=== PATIENT | male | born 1985 | race Two or more races ===

== ENCOUNTER 2025-08-02 09:01 | Inpatient (IN) | payer OTHER ==
[~2025-08-02] VITALS: Ht 172.7 cm; Wt 87.9 kg
--- NOTE | 2025-08-02 09:12 | ED.PDOC ---
SOB-HPI HPI Comments 39 year old male with PMHx DM insulin dependent, HTN, anemia, CKF presents to the ED via EMS with a chief complaint of shortness of breath onset last night. Per EMS, patient's O2 sat upon arrival was 49% RA, was placed on NRB improved to 79%, placed on c-pap, upon ED arrival O2 sat was 82% on 10 L cpap. Patient began experiencing shortness of breath last night, worsen this morning. Patient goes to dialysis Saturday, , Saturday, last dialysis was 2 days ago. No other symptoms or modifying factors present at this time. Time Seen by MD: 09:05 Reviewed notes: Medications, Allergies Information Source: Patient, Emergency Med Personnel Mode of Arrival: EMS Severity: Moderate Timing: Hours Duration: Since onset Context: At Rest PE Risk Factors: None History of: None Prehospital treatment: C-Pap Modifying Factors: Nothing Past Medical History PAST MEDICAL HISTORY: Anemia, CKF, DM, HTN Surgical History: Denies all surgeries Family History Family History: Reviewed,noncontributory to illness, No family hx of Cancer, No family hx of DM, No family hx of Heart colin, No family hx of HTN, No family hx ofKidney colin, No family hx of Liver colin, No family hx of Lung colin, No family hx of Stroke Social History Smoker: Non-Smoker Alcohol: Denies ETOH Use Drugs: Denies Drug Use Lives In: Home Constitutional: denies: chills, diaphoresis, fatigue, fever, malaise, sweats, weakness, others EENTM: denies: blurred vision, double vision, ear bleeding, ear discharge, ear drainage, ear pain, ear ringing, eye pain, eye redness, hearing loss, mouth pain, mouth swelling, nasal discharge, nose bleeding, nose congestion, nose pain, photophobia, tearing, throat pain, throat swelling, voice changes, others Respiratory: reports: shortness of breath; denies: cough, hemoptysis, orthopnea, SOB at rest, SOB with excertion, stridor, wheezing, others Cardiovascular: denies: chest pain, dizzy spells, diaphoresis, Dyspnea on exertion, edema, irregular heart beat, left arm pain, lightheadedness, palpitations, PND, syncope, others Gastrointestinal: denies: abdomen distended, abdominal pain, blood streaked bowels, constipated, diarrhea, dysphagia, difficulty swallowing, hematemesis, melena, nausea, poor appetite, poor fluid intake, rectal bleeding, rectal pain, vomiting, others Genitourinary: denies: burning, dysuria, flank pain, frequency, hematuria, incontinence, penile discharge, penile sore, pain, testicle pain, testicle swelling, urgency, others Neurological: denies: dizziness, fainting, headache, left sided numbness, left sided weakness, numbness, paresthesia, pre-existing deficit, right sided numbness, right sided weakness, seizure, speech problems, tingling, tremors, weakness, others Musculoskeletal: denies: back pain, gout, joint pain, joint swelling, muscle pain, muscle stiffness, neck pain, others Integumetry: denies: bruises, change in color, change in hair/nails, dryness, laceration, lesions, lumps, rash, wounds, others Allergic/Immunocompromised: denies: Difficulty Healing, Frequent Infections, Hives, Itching, others Hematologic/Lymphatic: denies: anemia, blood clots, easy bleeding, easy bruising, swollen glands, others Endocrine: denies: excessive hunger, excessive sweating, excessive thirst, excessive urination, flushing, intolerance to cold, intolerance to heat, unex plained weight gain, unexplained weight loss, others Psychiatric: denies: anxiety, bipolar disorder, depression, hopeless, panic disorder, schizophrenia, sleepless, suicidal, others All Other Systems: Reviewed and Negative Physical Exam General Appearance: Moderate Distress, Normal HEENT: Normal ENT Inspection, Pharynx Normal, TMs Normal Neck: Full Range of Motion, Non-Tender, Normal, Normal Inspection Respiratory: Other (Patient in respiratory distress without moving much air. Crackles bilaterally) Cardiovascular: No Edema, No JVD, No Murmur, No Gallop, Normal Peripheral Pulses, Regular Rate/Rhythm Breast Exam: Deferred Gastrointestinal: No Organomegaly, Non Tender, No Pulsatile Mass, Normal Bowel Sounds, Soft Genitalia: Deferred Pelvic: Deferred Rectal: Deferred Extremities: No calf tenderness, Normal capillary refill, Normal inspection, N ormal range of motion, Non-tender, No pedal edema Musculoskeletal : Apperance: Normal Neurologic: Alert, dual hose cementer II-XII nml as Tested, No Motor Deficits, Normal Affect, Normal Mood, No Sensory Deficits Cerebellar Function: Normal Reflexes: Normal Skin: Dry, Normal Color, Warm Lymphatic: No Adenopathy Was a procedure done? Was a procedure done?: No Differential Dx Differential Diagnosis: Pneumonia, Respiratory Distress, URI X-Ray, Labs, Meds, VS Vital Signs Date Time Temp Pulse Resp B/P (MAP) Pulse Ox O2 Delivery O2 Flow Rate FiO2 08/02/25 12:53 95 Nasal Cannula* 4 36 08/02/25 12:00 97 15 163/76 (105) 99 08/02/25 09:22 99.4 107 15 175/87 (116) 98 99.4 08/02/25 09:22 Bi-Pap+ 30 30 08/02/25 09:20 96 Bi-Pap+ 65 65 08/02/25 09:20 25 96 Bi-Pap+ 65 65 08/02/25 09:20 25 175/87 Facial BiPAP Mask 65 08/02/25 09:11 99.6 101 30 160/70 82 99.6 08/02/25 09:06 108 Lab Test 08/02/25 12:04 08/02/25 09:30 Range/Units Troponin I High Sensitivity 29 21 </=54 ng/L White Blood Count 11.4 H 4.4-10.8 10^3/uL Red Blood Count 2.58 L 4.5-5.90 10^6/uL Hemoglobin 7.1 L 13.5-17.5 g/dL Hematocrit 22.0 L 41.0-53.0 % Mean Corpuscular Volume 85.1 80.0-100.0 fL Mean Corpuscular Hemoglobin 27.4 L 28.0-32.0 pg Mean Corpuscular Hemoglobin Concent 32.2 32.0-36.0 g/dL Red Cell Distribution Width 13.6 11.8-14.3 % Platelet Count 314 140-450 10^3/uL Mean Platelet Volume 7.0 6.9-10.8 fL Neutrophils (%) (Auto) 85.8 H 37.0-80.0 % Lymphocytes (%) (Auto) 5.6 L 10.0-50.0 % Monocytes (%) (Auto) 8.2 0.0-12.0 % Eosinophils (%) (Auto) 0.1 0.0-7.0 % Basophils (%) (Auto) 0.3 0.0-2.0 % Neutrophils # (Auto) 9.7 H 1.6-8.6 10 ^3/uL Lymphocytes # (Auto) 0.6 0.4-5.4 10 ^3/uL Monocytes # (Auto) 0.9 0-1.3 10 ^3/uL Eosinophils # (Auto) 0 0-0.8 10 ^3/uL Basophils # (Auto) 0 0-0.2 10 ^3/uL Nucleated Red Blood Cells 0.0 % Sodium Level 138 136-145 mmol/L Potassium Level 4.9 3.5-5.1 mmol/L Chloride Level 94 L 98-107 mmol/L Carbon Dioxide Level 32 H 20-31 mmol/L Anion Gap 12 5-15 Blood Urea Nitrogen 40 H 9-23 mg/dL Creatinine 9.20 H 0.700-1.30 mg/dL Glomerular Filtration Rate Calc 7 >90 mL/min BUN/Creatinine Ratio 4.3 L 10.0-20.0 Serum Glucose 214 H 74-106 mg/dL Lactic Acid Level 1.8 0.4-2.0 mmol/L Calcium Level 9.1 8.7-10.4 mg/dL Total Bilirubin 0.4 0.2-1.0 mg/dL Aspartate Amino Transferase (AST) 22 13-40 U/L Alanine Aminotransferase (ALT) 31 7-40 U/L Alkaline Phosphatase 171 H 46-116 U/L B-Type Natriuretic Peptide 1275.86 0-100 pg/mL Total Protein 7.3 5.7-8.2 g/dL Albumin 3.9 3.2-4.8 g/dL Current Medications Medications (Trade) Dose Ordered Sig/Brunilda Route Start Time Stop Time Status Last Admin Albuterol (Ventolin Medneb) 5 mg ONCE ONCE NEB 08/02/25 09:15 08/02/25 09:16 DC 08/02/25 10:48 Ipratropium [place] (Atrovent Medneb) 0.5 mg ONCE ONCE NEB 08/02/25 09:15 08/02/25 09:16 DC 08/02/25 10:[address] [address] Ph: [phone] DIAGNOSTIC IMAGING Diagnostic Imaging Report : [id number] Signed PATIENT: NESSA MICHAELACCT: [id number] UNIT: [id number] : 1985 LOC: ER ROOM / BED: / AGE / SEX: 39 / M ADM STATUS: REG ER SERVICE [id number] ORDERING PHYSICIAN: RABIA RIVERA MD PROCEDURE(s): CXRP - CHEST PORTABLE REASON: sob ORDER NUMBER(s): [id number], ACCESSION NUMBER(s): [id number] CHEST RADIOGRAPH Indication: sob Technique: Single frontal view of the chest was obtained Comparison: None FINDINGS: Lines and Tubes: Right IJ double-lumen hemodialysis catheter. Lungs: Left mid lung opacity and to a lesser degree right mid lung opacities concerning for multifocal pneumonia versus pulmonary edema. Pleura: No effusion. No pneumothorax. Cardiomediastinal contours: Unremarkable Bones: No acute osseous abnormality. IMPRESSION: 1. Left mid lung opacity and to a lesser degree right mid lung opacities concerning for multifocal pneumonia versus pulmonary edema. ATED BY: ALFONSO GARNER MD DICTATED DATE/TIME: 08/02/25 1007 SIGNED BY: ALFONSO GARNER MD SIGNED DATE/TIME: 08/02/25 1007 CC: Time of 1ST Reevaluation: 09:35 Reevaluation 1ST: Unchanged Patient Education/Counseling: Diagnosis, Treatment, Prognosis Family Education/Counseling: No Family Present SEPSIS Sepsis Screen Physician Orders Urinalysis (08/02/25 09:08) Chest Portable (08/02/25 09:34) Electrocardigram (08/02/25 09:08) Blood Culture (08/02/25 09:08) Troponin-I Hs (08/02/25 12:08) Electrocardigram (08/02/25 10:08) Electrocardigram (08/02/25 12:08) BIPAP (08/02/25 09:00) Vital Signs Date Time Temp Pulse Resp B/P (MAP) Pulse Ox O2 Delivery O2 Flow Rate FiO2 08/02/25 12:53 95 Nasal Cannula* 4 36 08/02/25 12:00 97 15 163/76 (105) 99 08/02/25 09:22 99.4 107 15 175/87 (116) 98 99.4 08/02/25 09:22 Bi-Pap+ 30 30 08/02/25 09:20 96 Bi-Pap+ 65 65 08/02/25 09:20 25 96 Bi-Pap+ 65 65 08/02/25 09:20 25 175/87 Facial BiPAP Mask 65 08/02/25 09:11 99.6 101 30 160/70 82 99.6 08/02/25 09:06 108 Laboratory Tests Test 08/02/25 09:30 Lactic Acid Level 1.8 mmol/L (0.4-2.0) White Blood Count 11.4 10^3/uL (4.4-10.8) H Medications Medications Dose Ordered Sig/Brunilda Route Start Time Stop Time Status Last Admin Dose Admin Albuterol 5 mg ONCE ONCE NEB 08/02/25 09:15 08/02/25 09:16 DC 08/02/25 10:48 Ipratropium [place] 0.5 mg ONCE ONCE NEB 08/02/25 09:15 08/02/25 09:16 DC 08/02/25 10:48 Departure 1 Departure Time of Disposition: 13:15 (Patient with multifocal pneumonia. And acute respiratory failure. Patient is requiring BiPAP. We will empirically cover patient with antibiotics. We will not give patient fluids as patient is on dialysis and clinically appears volume overloaded.) Impression: Primary Impression: Acute respiratory failure Additional Impressions: Multifocal pneumonia ESRD (end stage renal disease) Disposition: ADMITTED INPATIENT Admit to: [facility] Condition: Guarded Critical Care Note Critical Care Time?: Yes Critical care comment: Acute respiratory failure and multifocal pneumonia Authorized and Performed by: Rabia Rivera MD Total critical care time: Approximately 48 minutes Due to a high probability of clinically significant, life threatening deterioration, the patient required my highest level of preparedness to intervene emergently and I personally spent this critical care time directly and personally managing the patient. This critical care time included obtaining a history; examining the patient; pulse oximetry; ordering and review of studies; arranging urgent treatment with development of a management plan; evaluation of patient's response to treatment; frequent reassessment; and, discussions with other providers. This critical care time was performed to assess and manage the high probability of imminent, life-threatening deterioration that could result in multi-organ failure. It was exclusive of separately billable procedures and treating other patients and teaching time. Please see my other sections and the rest of the note for further information on patient assessment and treatment. Stability Stability form required: No Heart Score Heart Score: Heart Score Response (Comments) Value History N/A 0 EKG N/A 0 Age N/A 0 Risk Factors N/A 0 Troponin N/A 0 Total 0 I personally scribed for RABIA RIVERA MD ([email or web address]) on 08/02/25 at 09:12. Electronically submitted by Debbie Huerta ([email or web address]). I personally scribed for RABIA RIVERA MD ([email or web address]) on 08/02/25 at 09:20. Electronically submitted by Debbie Huerta ([email or web address]). I personally scribed for RABIA RIVERA MD ([email or web address]) on 08/02/25 at 10:17. Electronically submitted by Debbie Huerta ([email or web address]). RABIA RIVERA MD Aug 02, 2025 09:12
[2025-08-02 09:59] LABS: Hemoglobin 7.1 g/dL (13.5-17.5); Mean Corpuscular Volume 85.1 fL (80.0-100.0); Nucleated Red Blood Cells % 0.0 %
[2025-08-02 10:03] LABS: Hematocrit 22.0 % (41.0-53.0); Mean Corpuscular Hemoglobin 27.4 pg (28.0-32.0)
--- NOTE | 2025-08-02 10:09 | DVH ---
CHEST RADIOGRAPH Indication: sob Technique: Single frontal view of the chest was obtained Comparison: None FINDINGS: Lines and Tubes: Right IJ double-lumen hemodialysis catheter. Lungs: Left mid lung opacity and to a lesser degree right mid lung opacities concerning for multifocal pneumonia versus pulmonary edema. Pleura: No effusion. No pneumothorax. Cardiomediastinal contours: Unremarkable Bones: No acute osseous abnormality. IMPRESSION: 1. Left mid lung opacity and to a lesser degree right mid lung opacities concerning for multifocal pneumonia versus pulmonary edema.
[2025-08-02 10:13] LABS: Alanine Aminotransferase 31 U/L (7-40); Albumin 3.9 g/dL (3.2-4.8); Anion Gap 12 (5-15); BUN/Creatinine Ratio 4.3 (10.0-20.0); Calcium 9.1 mg/dL (8.7-10.4); Potassium 4.9 mmol/L (3.5-5.1); Sodium 138 mmol/L (136-145); Total Protein 7.3 g/dL (5.7-8.2)
[2025-08-02 10:14] LABS: Bilirubin, Total 0.4 mg/dL (0.2-1.0)
[2025-08-02 10:18] LABS: Alkaline Phosphatase 171 U/L (46-116); Blood Urea Nitrogen 40 mg/dL (9-23); Carbon Dioxide 32 mmol/L (20-31); Chloride 94 mmol/L (98-107); Glucose 214 mg/dL (74-106)
[2025-08-02] MEDS: IPRATROPIUM BROM 0.5 MG/2.5ML INH SOL NEB ONE (10:48)
[2025-08-02] MEDS: ALBUTEROL SULF 2.5 MG/0.5ML(0.5%) NEB SOLN NEB ONE (10:48)
[2025-08-02] MEDS ORDERED: DEXTROSE (50%) 50ML SYRG IV PRN (14:00)
[2025-08-02] MEDS: VANCOMYCIN 1GM/250ML KIT 250 ML IV ONE (14:13)
[2025-08-02] MEDS: CEFEPIME 2GM/50ML NS 50 ML IV ONE (14:13)
[2025-08-02] MEDS: AZITHROMYCIN 250 MG TAB PO ONE (14:14)
--- NOTE | 2025-08-02 14:26 | DVHHP2 ---
History of Present Illness History of Present Illness This is a 39-year-old male with past medical history of ESRD due to type 1 diabetes mellitus, hypertension, and anemia. He was recently hospitalized at [facility] for appendicitis complicated by peritonitis and Clostridioides difficile colitis and was discharged this past Saturday. Per his , he developed shortness of breath last night, vomited, and by 8 a.m. became unresponsive. EMS found him with SpO2 49% on room air, improving only to 70% on non-rebreather and to 80% on CPAP (10 L). He arrived on CPAP and was later transitioned to 4 L nasal cannula with SpO2 95%. His last hemodialysis session was Saturday with 2 L removed. He denies tobacco, alcohol, or drugs. Home meds include NPH insulin 15 units AM / 25 units PM (adjusted here to 15 units BID), oral vancomycin for recent C. diff, Procrit, carvedilol 6.25 mg (held), atorvastatin, ciprofloxacin, amlodipine 5 mg, sevelamer, furosemide, and losartan 100 mg (held; continuing amlodipine). Past Medical History ESRD on HD, type 1 diabetes mellitus, hypertension, anemia. Past Surgical History Appendectomy, prior abdominal surgeries related to recent complications; PD catheter removed. Social History Lives with , denies tobacco, alcohol, or illicit drugs. Allergies NKDA. ROS As stated in HPI. No abdominal pain. No additional complaints reported. Review of Systems Allergies: Coded Allergies: NO KNOWN ALLERGIES (Unverified , 08/02/25) Medications Current Medications Medications Dose Ordered Sig/Brunilda Route Start Time Stop Time Status Last Admin Dose Admin Vancomycin HCl 500 mg QID PO 08/02/25 14:00 UNV Meropenem 50 ml @ 17 mls/hr DAILY IV 08/03/25 10:00 UNV Azithromycin 250 ml @ 125 mls/hr DAILY IV 08/02/25 14:00 UNV Insulin Human NPH 15 units IBID SC 08/02/25 18:00 UNV Diagnostic Test (Pha) 1 strip ACHS 08/02/25 17:00 UNV Insulin Human Regular ACHS SC 08/02/25 17:00 UNV Dextrose 50 ml UD PRN IV 08/02/25 14:00 UNV Albuterol 2.5 mg Q6HWA NEB 08/02/25 18:00 UNV Ipratropium [place] 0.5 mg Q6HWA NEB 08/02/25 18:00 UNV Heparin Sodium (Porcine) 5,000 units Q12HR SC 08/02/25 22:00 UNV Amlodipine Besylate 5 mg DAILY PO 08/02/25 14:00 UNV Exam Vital Signs Vital Signs Date Time Temp Pulse Resp B/P (MAP) Pulse Ox O2 Delivery O2 Flow Rate FiO2 08/02/25 12:53 95 Nasal Cannula* 4 36 08/02/25 12:00 97 15 163/76 (105) 08/02/25 09:22 99.4 99.4 Exam General: Alert and oriented 4, mildly tachypneic. Vitals: T 99.6F, [place] [address], BP 163/76, RR elevated on arrival, SpO? 95% on 4 L NC. Lungs: Mild crackles bilaterally. Heart: Regular rate and rhythm. Abdomen: Soft, non-tender, healed surgical scars. Extremities: +2 pitting edema bilaterally. Neuro: No focal deficits. Access: Tunneled dialysis catheter present. Labs/Xrays Labs Test 08/02/25 13:50 08/02/25 09:30 Range/Units White Blood Count 11.4 H 4.4-10.8 10^3/uL Red Blood Count 2.58 L 4.5-5.90 10^6/uL Hemoglobin 7.1 L 13.5-17.5 g/dL Hematocrit 22.0 L 41.0-53.0 % Mean Corpuscular Volume 85.1 80.0-100.0 fL Mean Corpuscular Hemoglobin 27.4 L 28.0-32.0 pg Mean Corpuscular Hemoglobin Concent 32.2 32.0-36.0 g/dL Red Cell Distribution Width 13.6 11.8-14.3 % Platelet Count 314 140-450 10^3/uL Mean Platelet Volume 7.0 6.9-10.8 fL Neutrophils (%) (Auto) 85.8 H 37.0-80.0 % Lymphocytes (%) (Auto) 5.6 L 10.0-50.0 % Monocytes (%) (Auto) 8.2 0.0-12.0 % Eosinophils (%) (Auto) 0.1 0.0-7.0 % Basophils (%) (Auto) 0.3 0.0-2.0 % Neutrophils # (Auto) 9.7 H 1.6-8.6 10 ^3/uL Lymphocytes # (Auto) 0.6 0.4-5.4 10 ^3/uL Monocytes # (Auto) 0.9 0-1.3 10 ^3/uL Eosinophils # (Auto) 0 0-0.8 10 ^3/uL Basophils # (Auto) 0 0-0.2 10 ^3/uL Nucleated Red Blood Cells 0.0 % Sodium Level 138 136-145 mmol/L Potassium Level 4.9 3.5-5.1 mmol/L Chloride Level 94 L 98-107 mmol/L Carbon Dioxide Level 32 H 20-31 mmol/L Anion Gap 12 5-15 Blood Urea Nitrogen 40 H 9-23 mg/dL Creatinine 9.20 H 0.700-1.30 mg/dL Glomerular Filtration Rate Calc 7 >90 mL/min BUN/Creatinine Ratio 4.3 L 10.0-20.0 Serum Glucose 214 H 74-106 mg/dL Lactic Acid Level 1.8 0.4-2.0 mmol/L Calcium Level 9.1 8.7-10.4 mg/dL Total Bilirubin 0.4 0.2-1.0 mg/dL Aspartate Amino Transferase (AST) 22 13-40 U/L Alanine Aminotransferase (ALT) 31 7-40 U/L Alkaline Phosphatase 171 H 46-116 U/L B-Type Natriuretic Peptide 1275.86 0-100 pg/mL Total Protein 7.3 5.7-8.2 g/dL Albumin 3.9 3.2-4.8 g/dL SEPSIS Sepsis Screen Date sepsis recognized/suspect: Aug 02, 2025 Time Sepsis recognized/suspect: 921 Recent Procedure: No On Antibiotic Therapy: No Respiratory Rate >20: No Heart Rate >90: Yes Temp<36 C (96.8 F) or >38.3 C: No SBP <90 or MAP <65 mmHG: No New Acute Mental Status Change: No Is the patient on CPAP, BIPAP,: Yes Physician Orders Urinalysis (08/02/25 09:08) Chest Portable (08/02/25 09:34) Electrocardigram (08/02/25 09:08) Blood Culture (08/02/25 09:08) Troponin-I Hs (08/02/25 12:08) Electrocardigram (08/02/25 10:08) Electrocardigram (08/02/25 12:08) BIPAP (08/02/25 09:00) Cefepime 2gm/50ml Ns (Maxipime 2gm/50ml) (08/02/25 13:15) Admit (08/02/25 13:57) Code Status (08/02/25 13:57) Vital Signs .PER UNIT PROTOCOL (08/02/25 13:57) Review Orders With Adm.Md (08/02/25 13:57) Notify Md Of Changes From Base (08/02/25 13:57) Advance Directive (08/02/25 13:57) Patient Condition (08/02/25 13:57) Allergies (08/02/25 13:57) Oxygen By Nasal Cannula (08/02/25 13:57) Stat Ekg For Chest Pain (08/02/25 13:57) Notify Md Of Changes From Base (08/02/25 13:57) Editing Clerk For 24 Hours (08/02/25 13:57) Emergency Dysrhythmia Protocol (08/02/25 13:57) Rhythm Strips Once Every Shift (08/02/25 13:57) Clostridium Difficile Toxin (08/02/25 13:57) Vancomycin Po (Vancomycin Hydrochloride) (08/02/25 14:00) Meropenem 500mg Ivpb (Merrem 500mg/50ml (08/03/25 10:00) Meropenem 1gm Ivpb (Merrem 1gm/50ml) (08/02/25 14:00) Azithromycin 500mg/250ml (Zithromax 500m (08/02/25 14:00) *Dr. Chitra Benedict -Da Laquita (08/02/25 13:57) Insulin Nph Isophane (Human) (Novolin N) (08/02/25 18:00) Glucose Blood (Accu-Chek Comfort Curve T (08/02/25 17:00) Insulin R (Human) (Insulin R) (08/02/25 17:00) Dextrose 50% Syringe (08/02/25 14:00) Abg W/ Co-Ox (08/02/25 13:57) Ct Ab Pel Wo Con-No Oral Or Iv (08/02/25 13:57) Stool Wbc (08/02/25 13:57) Stool Bacterial Culture (08/02/25 13:57) Stool Occult Blood (08/02/25 13:57) Albuterol Medneb (Ventolin Medneb) (08/02/25 18:00) Ipratropium Medneb (Atrovent Medneb) (08/02/25 18:00) Mrsa Screen (08/02/25 13:57) Covid19 Antigen Soo (08/02/25 ) Rapid Influenza A&B (08/02/25 13:57) Urinalysis (08/02/25 13:57) Urine Bacterial Culture (08/02/25 13:57) Heparin Sodium (Porcine) (08/02/25 22:00) Amlodipine Tablet (Norvasc Tablet) (08/02/25 14:00) Vital Signs Date Time Temp Pulse Resp B/P (MAP) Pulse Ox O2 Delivery O2 Flow Rate FiO2 08/02/25 12:53 95 Nasal Cannula* 4 36 08/02/25 12:00 97 15 163/76 (105) 99 08/02/25 09:22 99.4 107 15 175/87 (116) 98 99.4 08/02/25 09:22 Bi-Pap+ 30 30 08/02/25 09:20 96 Bi-Pap+ 65 65 08/02/25 09:20 25 96 Bi-Pap+ 65 65 08/02/25 09:20 25 175/87 Facial BiPAP Mask 65 08/02/25 09:11 99.6 101 30 160/70 82 99.6 08/02/25 09:06 108 Laboratory Tests Test 08/02/25 09:30 Lactic Acid Level 1.8 mmol/L (0.4-2.0) White Blood Count 11.4 10^3/uL (4.4-10.8) H Medications Medications Dose Ordered Sig/Brunilda Route Start Time Stop Time Status Last Admin Dose Admin Albuterol 5 mg ONCE ONCE NEB 08/02/25 09:15 08/02/25 09:16 DC 08/02/25 10:48 5 MG Azithromycin 500 mg ONCE ONCE PO 08/02/25 13:15 08/02/25 13:30 DC 08/02/25 14:14 500 MG Cefepime HCl 50 ml @ 12.5 mls/hr ONCE ONCE IV 08/02/25 13:15 08/02/25 17:14 08/02/25 14:13 12.5 MLS/HR Ipratropium [place] 0.5 mg ONCE ONCE NEB 08/02/25 09:15 08/02/25 09:16 DC 08/02/25 10:48 0.5 MG Vancomycin HCl 250 ml @ 250 mls/hr ONCE ONCE IV 08/02/25 13:15 08/02/25 14:14 DC 08/02/25 14:13 250 MLS/HR Assessment/Plan Assessment/Plan # Acute respiratory failure with hypoxia #PE rule out Severe hypoxemia requiring CPAP hospital, with imaging suggesting a pulmonary infectious process. Improved on 4 L nasal cannula but remains high risk. Continue oxygen therapy, obtain ABG, monitor closely on telemetry ECHO, ddimer and DVT US will be ordered # Sepsis due to pneumonia gram+/gram - Meets sepsis criteria with tachycardia, hypoxia, and bilateral infiltrates. Started on meropenem and azithromycin for broad coverage while blood cultures, respiratory viral panel, stool studies, and urine studies are pending. Trend lactate and reassess hemodynamics # Clostridioides difficile colitis (recent) He is currently on oral vancomycin as continuation of therapy. No abdominal pain or tenderness, but high recurrence risk. Continue oral vancomycin, follow stool assays, and monitor for GI symptoms and follow CT abdomen/pelvis. # ESRD on hemodialysis Last HD was Saturday with 2 L removed, and he is oliguric but not anuric. Consult Nephrology for timing of next dialysis, volume status assessment, and management of electrolytes. # Type 1 diabetes mellitus Glucose elevated on admission; he is on NPH at home. Continue NPH insulin 15 units BID as adjusted, and use sliding-scale insulin for correction. # Hypertension Home losartan held given acute illness; carvedilol held due to respiratory status. Continue amlodipine 5 mg and reassess blood pressure trends. # Anemia of chronic disease due to ESRD Hemoglobin 7.1, consistent with ESRD baseline anemia. Continue Procrit per nephro recommendations and trend CBC. Prophylaxis: Heparin 5,000 units SQ BID for DVT prevention. Case discussed with Dr Gibson Full code Plan discussed with: Patient, Other (rn) My Orders Orders - THEODORA OLIVARES Procedure Category Date Status Time Admit ADMIT 08/02/25 Transmitted 13:57 Code Status CODE 08/02/25 Transmitted 13:57 Vital Signs GRETTA 08/02/25 In Process 13:57 Review Orders With [facility] 08/02/25 In Process Adm. 13:57 Notify Md Of Changes [facility] 08/02/25 In Process From Base 13:57 Advance Directive [facility] 08/02/25 In Process 13:57 Patient Condition ORDERS 08/02/25 Transmitted 13:57 Allergies GRETTA 08/02/25 In Process 13:57 Oxygen By Nasal RT 08/02/25 Transmitted Cannula 13:57 Stat Ekg For Chest GRETTA 08/02/25 In Process Pain 13:57 Notify Md Of Changes [facility] 08/02/25 In Process From Base 13:57 Editing Clerk For [facility] 08/02/25 In Process 24 Hours 13:57 Emergency Dysrhythmia [facility] 08/02/25 In Process Protocol 13:57 Rhythm Strips Once [facility] 08/02/25 In Process Every Shift 13:57 Clostridium Difficile SOPHIE 08/02/25 Logged Toxin 13:57 Vancomycin Po PHA 08/02/25 Logged (Vancomycin 14:00 Meropenem 500mg Ivpb PHA 08/03/25 Logged (Merrem 500mg/50ml 10:00 Meropenem 1gm Ivpb PHA 08/02/25 Logged (Merrem 1gm/50ml) 14:00 Azithromycin PHA 08/02/25 Logged 500mg/250ml 14:00 *Dr. Chitra Benedict -Da CONS 08/02/25 Transmitted Laquita 13:57 Insulin Nph Isophane PHA 08/02/25 Logged (Human) (Novolin N) 18:00 Glucose Blood PHA 08/02/25 Logged (Accu-Chek Comfort 17:00 Insulin R (Human) PHA 08/02/25 Logged (Insulin R) 17:00 Dextrose 50% Syringe PHA 08/02/25 Logged 14:00 Abg W/ Co-Ox RT 08/02/25 Logged 13:57 Ct Ab Pel Wo Con-No CT 08/02/25 Logged Oral Or Iv 13:57 Stool Wbc LAB 08/02/25 Logged 13:57 Stool Bacterial SOPHIE 08/02/25 Logged Culture 13:57 Stool Occult Blood LAB 08/02/25 Logged 13:57 Albuterol Medneb PHA 08/02/25 Logged (Ventolin Medneb) 18:00 Ipratropium Medneb PHA 08/02/25 Logged (Atrovent Medneb) 18:00 Mrsa Screen SOPHIE 08/02/25 Logged 13:57 Covid19 Antigen Soo LAB 08/02/25 Logged Rapid Influenza A&B LAB 08/02/25 Logged 13:57 Urinalysis LAB 08/02/25 Logged 13:57 Urine Bacterial SOPHIE 08/02/25 Logged Culture 13:57 Heparin Sodium PHA 08/02/25 Logged (Porcine) 22:00 Amlodipine Tablet PHA 08/02/25 Logged (Norvasc Tablet) 14:00 Date of Service: Aug 02, 2025 Billing Provider: DAISY GIBSON MD Common Visit Codes: 61272-[id number] INP/OBS CARE (HIGH) Secondary Visit Codes: 67169-[id number] CARE PLAN 30 MINUTES THEODORA OLIVARES RESIDENT Aug 02, 2025 14:26
[2025-08-02] MEDS: VANCOMYCIN HCL 250 MG CAP PO SCH (14:43)
[2025-08-02 15:00] VITALS: BP 163/76; PULSE 97; RESP 18; TEMP 99.4; O2SAT 94
[2025-08-02 15:09] LABS: Base Excess 7.3 mmol/L (-2.0-3.0)
--- NOTE | 2025-08-02 15:22 | DVH ---
EXAM: CT CT AB PEL WO CON-NO ORAL OR IV HISTORY: sepsis, h/o colitis, peritonitis recently, rule out abcess Comparison Study: None Exam Date: 08/02/2025 02:45 PM Radiation Dose Information: CT Dose: CTDI volume is 12.07 mGy. Dose-length product is 776.48 mGy*cm Technique: Multidetector CT of the abdomen and pelvis was performed. Imaging was performed without IV contrast. Axial, coronal and sagittal multiplanar reformats were obtained from the axial data set by the technologist. Findings: Lack of intravenous contrast compromises evaluation of perfusion and for isodense lesions. Lower chest: Multifocal patchy opacities throughout visualized both lungs. Liver: Unremarkable Biliary system: Diffuse gallbladder wall thickening without significant distention which could be reactive or relate to volume overload. Spleen: Unremarkable Pancreas: Unremarkable. Adrenals: Unremarkable. Kidneys and ureters: No hydronephrosis apparent Diffuse intrarenal vascular calcifications versus nonobstructing calculi. Bowel: No obstruction. Bladder: Diffuse bladder wall thickening. Reproductive organs: No abnormal mass. Lymph nodes: Prominent and increased number but nonenlarged retroperitoneal lymph nodes, favored to be reactive. Peritoneum: Small volume ascites most pronounced in the anterior abdominal cavity with mild peritoneal wall thickening likely related to known peritonitis. Vessels: Patency not evaluated on this noncontrast study. Bones and soft tissue: No aggressive osseous lesion. L5 bilateral pars defect without significant Anterolisthesis. IMPRESSION: Small volume ascites with mild peritoneal wall thickening likely related to known peritonitis. Multifocal patchy opacities throughout visualized both lungs suspicious for pneumonia. Diffuse bladder wall thickening. Correlate with urinalysis. Diffuse gallbladder wall thickening without significant distention. This could be seen with reactive changes or volume overload. Acute cholecystitis is less likely given lack of significant distention. If there is concern for acute cholecystitis, HIDA scan can be obtained for further evaluation.
--- NOTE | 2025-08-02 15:25 | DVH ---
Bilateral lower extremity venous duplex Clinical History: rule out DVT Comparison: None Technique: Duplex Doppler evaluation of the deep venous systems of both lower extremities from the common femoral veins to the popliteal veins including color Doppler and spectral/pulsed waveform analysis was performed. Findings: RIGHT SIDE: The common femoral vein demonstrates appropriate compressibility and waveform variability. There is compressibility/patency of the great saphenous vein at the proximal thigh. The femoral vein demonstrates appropriate compressibility and waveform variability. The deep femoral vein demonstrates appropriate compressibility and waveform variability. The popliteal vein demonstrates appropriate compressibility and waveform variability. There is normal compressibility at the tibioperoneal trunk. LEFT SIDE: The common femoral vein demonstrates appropriate compressibility and waveform variability. There is compressibility/patency of the great saphenous vein at the proximal thigh. The femoral vein demonstrates appropriate compressibility and waveform variability. The deep femoral vein demonstrates appropriate compressibility and waveform variability. The popliteal vein demonstrates appropriate compressibility and waveform variability. There is normal compressibility at the tibioperoneal trunk. Impression: 1. No right or left femoropopliteal venous thrombosis.
[2025-08-02] MEDS: MEROPENEM 1GM IVPB 50 ML IV ONE (15:39)
--- NOTE | 2025-08-02 16:12 | DVHSR ---
APPROVED REPORT EXAM: Two-dimensional and M-mode echocardiogram with Doppler and color Doppler. Blood Pressure: 164/89 mmHg INDICATION Rule out RV strain RISK FACTORS Height: 5'7", Weight: 149 DIMENSIONS LVDd 5.6 (3.8-5.7cm) LA (2D) 4.6 (1.9-4.0cm) Aortic Root 3.1 (2.0-3.7cm) LVDs 4.3 (2.5-4.0cm) LA (MM) (1.9-4.0cm) Aortic Cusp Exc 1.8 (1.5-2.0cm) EF (%) 46.0 (55-70%) Rt. Atrium 4.4 (1.9-4.0cm) Asc. Aorta cm IVSd 1.1 (0.7-1.1cm) RV (D) 4.7 (1.8-2.4cm) PWd 1.1 (0.7-1.1cm) Mitral Valve Mitral Mitral Stenosis E wave 1.38m/s MV Mean GR. mmHg A wave 1.11m/s MV Peak GR. mmHg E/A ratio 1.2 2D MVA cm2 DECEL Time 149ms PRESS 1/2 Time ms Aortic Valve Aortic Valve Aortic Stenosis V1 1.00m/s AO Mean GR. 6mmHg V2 1.70m/s AO Peak GR. 12mmHg LVOT Diameter 2.0 (1.8-2.4cm) Doppler RAY 1.85cm2 Pulmonic Valve V2 1.21m/s Tricuspid Valve TR Velocity 3.15m/s RVSP 43mmHg Conclusion lvef 55% normal rv size and function normal altria, borderline left atrium enlarged mild mitral regurg mild tricuspid regurg mild pulmonic regurg
[2025-08-02 16:20] VITALS: PULSE 95
[2025-08-02] MEDS: AZITHROMYCIN 500MG/250ML 250 ML IV SCH (16:58)
[2025-08-02] MEDS: INSULIN NPH Isophane (HUMAN) 1unit/0.01ml Susp(100units/ml) SC SCH (18:00)
[2025-08-02] MEDS: ACCU-CHEK COMFORT CURVE STRIP VI SCH (18:03)
[2025-08-02] MEDS: InsuLIN REG 1unit/0.01ml Soln (100units/ml) SC SCH (18:03)
[2025-08-02 19:30] VITALS: PULSE 86; RESP 18; O2SAT 92
[2025-08-02 19:39] VITALS: PULSE 87; RESP 21; O2SAT 94
[2025-08-02] MEDS: ALBUTEROL SULF 2.5 MG/0.5ML(0.5%) NEB SOLN NEB SCH (19:42)
[2025-08-02] MEDS: IPRATROPIUM BROM 0.5 MG/2.5ML INH SOL NEB SCH (19:42)
[2025-08-02 19:49] VITALS: PULSE 88; RESP 18; O2SAT 99
[2025-08-02 20:44] LABS: Urine Protein, UAD 4+ (Negative)
[2025-08-02 21:02] VITALS: BP 154/89; PULSE 91; RESP 16; TEMP 98.2; O2SAT 91
[2025-08-02] MEDS ORDERED: HEP5000I (21:06)
[2025-08-02] MEDS ORDERED: VANC125C3 PO (21:06)
[2025-08-02] MEDS ORDERED: TRAZ-181 PO (21:06)
[2025-08-02] MEDS ORDERED: INSU1INJ4 SC (21:06)
[2025-08-02] MEDS ORDERED: CALC0.25 PO (21:06)
[2025-08-02] MEDS ORDERED: ATOR40TA52 PO (21:06)
[2025-08-02] MEDS ORDERED: SEVE800T10 PO (21:06)
[2025-08-02] MEDS ORDERED: LOSA-535 PO (21:06)
[2025-08-02] MEDS ORDERED: CARV6.2551 PO (21:06)
[2025-08-02] MEDS ORDERED: AMLO1TAB22 PO (21:06)
[2025-08-02] MEDS ORDERED: CALC10TA PO (21:08)
[2025-08-02] MEDS ORDERED: INSU1INJ3 SC (21:09)
[2025-08-02] MEDS ORDERED: INS7030I SC (21:09)
[2025-08-02] MEDS ORDERED: CALC500C3 PO (21:10)
[2025-08-02] MEDS: HEPARIN SODIUM (PORCINE) 5000 UNITS/ML 1ML VIAL SC SCH (21:20)
[2025-08-03] VITALS (27 sets, daily range): BP systolic 110–157; BP diastolic 62–91; PULSE 78–107; RESP 8–20; TEMP 97.8–99.3; O2SAT 60–100
[2025-08-03] MEDS: ACETAMINOPHEN 325 MG TAB PO PRN (06:23)
[2025-08-03 06:28] LABS: Hematocrit 19.1 % (41.0-53.0); Nucleated Red Blood Cells % 0.1 %
[2025-08-03 06:30] LABS: Mean Corpuscular Hemoglobin 29.1 pg (28.0-32.0); Mean Corpuscular Volume 85.1 fL (80.0-100.0)
[2025-08-03 06:41] LABS: INR 1.16 (0.9-1.15); Partial Thromboplastin Time 29.1 SEC (24.5-34.5); Prothrombin Time 12.1 sec (9.3-11.8)
[2025-08-03 06:42] LABS: Alanine Aminotransferase 25 U/L (7-40); Albumin 3.4 g/dL (3.2-4.8); Anion Gap 12 (5-15); BUN/Creatinine Ratio 4.8 (10.0-20.0); Magnesium 2.5 mg/dL (1.6-2.6); Potassium 4.7 mmol/L (3.5-5.1); Sodium 137 mmol/L (136-145); Total Protein 6.5 g/dL (5.7-8.2)
[2025-08-03 06:43] LABS: Bilirubin, Total 0.3 mg/dL (0.2-1.0)
[2025-08-03 06:44] LABS: Alkaline Phosphatase 127 U/L (46-116); Blood Urea Nitrogen 49 mg/dL (9-23); Calcium 8.3 mg/dL (8.7-10.4); Carbon Dioxide 32 mmol/L (20-31); Chloride 93 mmol/L (98-107); Glucose 140 mg/dL (74-106)
[2025-08-03 07:22] LABS: Hemoglobin 6.5 g/dL (13.5-17.5)
[2025-08-03] MEDS ORDERED: ACETAMINOPHEN 500 MG TAB or CAP PO ONE (08:00)
--- NOTE | 2025-08-03 08:24 | DVHINCON2 ---
Date of service: Aug 03, [address] Holland Reason for Consultation ESKD History of Present Illness This is a 39-year-old male with past medical history of ESRD due to type 1 diabetes mellitus, hypertension, and anemia. He was recently hospitalized at [facility] for appendicitis complicated by peritonitis and Clostridioides difficile colitis and was discharged on Jul 25 . Per his , he developed shortness of breath last night, vomited, and by 8 a.m. became unresponsive. EMS found him with SpO2 49% on room air, improving only to 70% on non-rebreather and to 80% on CPAP (10 L). He arrived on CPAP and was later transitioned to 4 L nasal cannula with SpO2 95%. His last hemodialysis session was Sat with 2 L removed. As per history he had received a unit of PRBC last week in [facility] [place] . Labs done today showing a Hb of 6.5 . Patient seen at bedside . Past Medical History As above Past Surgical History Appendectomy, PD catheter placement and removal Family History: Patient reports no known family medical history. Social History Lives with , denies tobacco, alcohol, or illicit drugs. Allergies: Coded Allergies: NO KNOWN ALLERGIES (Unverified , 08/02/25) Home Meds Reported Medications Calcium Carbonate (Tums) 500 Mg Chw, 500 MG PO QID, TAB.CHEW 08/02/25 Insulin Isophane & Reg (Human) (Humulin 70/30 (70-30) 100 Unit/ml) 1 Units/0.01 Ml Inj, 15 UNITS SC QAM, INJ 08/02/25 Calcium Acetate (CALCIUM ACETATE) 667 Mg Tab, 667 MG PO TID, TAB 08/02/25 Calcitriol (Calcitriol) 0.25 Mcg Cap, CAP PO 08/02/25 Losartan Potassium (Losartan Potassium) 100 Mg Tab, 1 TAB PO DAILY 08/02/25 Sevelamer Carbonate (Sevelamer Carbonate) 800 Mg Tab, 1 TAB PO TID 08/02/25 Amlodipine Besylate (Amlodipine Besylate) 5 Mg Tab, 1 TAB PO BID 08/02/25 Heparin Sodium (Porcine) (Heparin Sodium) 5,000 Unit/Ml Inj 08/02/25 Insulin NPH (Human) (Isophane) (Humulin N Kwikpen) 100 Unit/Ml Inj, SC 08/02/25 Atorvastatin Calcium (ATORVASTATIN CALCIUM) 40 Mg Tab, 1 TAB PO DAILY 08/02/25 Carvedilol (Carvedilol) 6.25 Mg Tab, TAB PO 08/02/25 Vancomycin HCl (Vancomycin HCl) 125 Mg Cap, 1 CAP PO QID 08/02/25 Trazodone HCl (Trazodone Hydrochloride) 50 Mg Tab, 1 TAB PO 08/02/25 Discontinued Reported Medications Insulin NPH Isophane & Reg (Hu (Humulin 70/30 Kwikpen (70-30) 100 Unit/ml) 1 Inj Inj, 25 INJ SC HS, INJ 08/02/25 Current Medications Current Medications Medications (Trade) Dose Ordered Sig/Brunilda Route PRN Reason Start Time Stop Time Status Last Admin Vancomycin HCl (Vancomycin Hydrochloride) 500 mg QID PO 08/02/25 14:00 08/03/25 05:52 Meropenem 50 ml @ 17 mls/hr DAILY IV 08/03/25 10:00 Azithromycin 250 ml @ 125 mls/hr DAILY IV 08/02/25 14:00 08/02/25 16:58 Insulin Human NPH (NovoLIN N) 15 units IBID CO 08/02/25 18:00 Diagnostic Test (Pha) (Accu-Chek Comfort Curve T) 1 strip ACHS 08/02/25 17:00 08/03/25 05:53 Insulin Human Regular (InsuLIN R) ACHS CO 08/02/25 17:00 08/03/25 05:59 Dextrose 50 ml UD PRN IV Blood Sugar LESS THAN 60 08/02/25 14:00 Albuterol (Ventolin Medneb) 2.5 mg Q6HWA [facility] 08/02/25 18:00 08/03/25 06:00 Ipratropium [place] (Atrovent Medneb) 0.5 mg Q6HWA [facility] 08/02/25 18:00 08/03/25 06:00 Heparin Sodium (Porcine) 5,000 units Q12HR SC 08/02/25 22:00 08/02/25 21:20 Amlodipine Besylate (Norvasc Tablet) 5 mg DAILY PO 08/02/25 14:00 08/02/25 14:43 Acetaminophen (Tylenol Tablet) 650 mg Q6HP PRN PO MILD PAIN (1-3 PAIN SCALE) 08/02/25 23:45 08/03/25 06:23 Review of Systems 12 point ROS negative except as in HPI Vital Signs Vital Signs Date Time Temp Pulse Resp B/P (MAP) Pulse Ox O2 Delivery O2 Flow Rate FiO2 08/03/25 06:06 99 18 96 08/03/25 06:00 Mask 8.0 08/03/25 06:00 60 08/03/25 05:00 98.6 156/88 (110) 98.6 Physical Exam General: Alert and oriented 4, mildly tachypneic. pALLOR PRESENT Lungs: Mild crackles bilaterally. Heart: Regular rate and rhythm. Abdomen: Soft, non-tender, healed surgical scars. Extremities: +2 pitting edema bilaterally. Neuro: No focal deficits. Access: Tunneled dialysis catheter present. Labs/Diagnostic Data Labs Test 08/03/25 06:00 08/03/25 05:41 08/03/25 05:13 08/02/25 19:45 Range/Units POC Glucose 146 H 70-106 mg/dl White Blood Count 8.9 4.4-10.8 10^3/uL Red Blood Count 2.24 L 4.5-5.90 10^6/uL Hemoglobin 6.5 *L 13.5-17.5 g/dL Hematocrit 19.1 #L 41.0-53.0 % Mean Corpuscular Volume 85.1 80.0-100.0 fL Mean Corpuscular Hemoglobin 29.1 28.0-32.0 pg Mean Corpuscular Hemoglobin Concent 34.2 32.0-36.0 g/dL Red Cell Distribution Width 14.2 11.8-14.3 % Platelet Count 291 140-450 10^3/uL Mean Platelet Volume 7.2 6.9-10.8 fL Neutrophils (%) (Auto) 80.6 H 37.0-80.0 % Lymphocytes (%) (Auto) 8.8 L 10.0-50.0 % Monocytes (%) (Auto) 9.2 0.0-12.0 % Eosinophils (%) (Auto) 1.0 0.0-7.0 % Basophils (%) (Auto) 0.4 0.0-2.0 % Neutrophils # (Auto) 7.2 1.6-8.6 10 ^3/uL Lymphocytes # (Auto) 0.8 0.4-5.4 10 ^3/uL Monocytes # (Auto) 0.8 0-1.3 10 ^3/uL Eosinophils # (Auto) 0.1 0-0.8 10 ^3/uL Basophils # (Auto) 0 0-0.2 10 ^3/uL Nucleated Red Blood Cells 0.1 % Prothrombin Time 12.1 H 9.3-11.8 sec Prothrombin Time INR 1.16 H 0.9-1.15 Activated Partial Thromboplast Time 29.1 24.5-34.5 SEC Sodium Level 137 136-145 mmol/L Potassium Level 4.7 3.5-5.1 mmol/L Chloride Level 93 L 98-107 mmol/L Carbon Dioxide Level 32 H 20-31 mmol/L Anion Gap 12 5-15 Blood Urea Nitrogen 49 H 9-23 mg/dL Creatinine 10.13 *H 0.700-1.30 mg/dL Glomerular Filtration Rate Calc 6 >90 mL/min BUN/Creatinine Ratio 4.8 L 10.0-20.0 Serum Glucose 140 H 74-106 mg/dL Calcium Level 8.3 L 8.7-10.4 mg/dL Phosphorus Level 2.4 2.4-5.1 mg/dL Magnesium Level 2.5 1.6-2.6 mg/dL Total Bilirubin 0.3 0.2-1.0 mg/dL Aspartate Amino Transferase (AST) 16 13-40 U/L Alanine Aminotransferase (ALT) 25 7-40 U/L Alkaline Phosphatase 127 H 46-116 U/L Total Protein 6.5 5.7-8.2 g/dL Albumin 3.4 3.2-4.8 g/dL Vitamin B12 Level 1312 H 211-911 pg/mL Vitamin D 25-Hydroxy 21.0 L 30.0-100 ng/mL Thyroid Stimulating Hormone (TSH) 4.12 0.55-4.78 uIU/mL Urine Color Yellow Yellow Urine Clarity Clear Clear Urine pH 8.0 5.0-9.0 Urine Specific [place] 1.027 1.001-1.035 Urine Protein 4+ H Negative Urine Ketones Negative Negative Urine Blood Negative Negative /uL Urine Nitrite Negative Negative Urine Bilirubin Negative Negative Urine Urobilinogen Normal Negative mg/dL Urine Leukocyte Esterase Negative Negative /uL Urine RBC 2 0 - 3 /hpf Urine Microscopic WBC 5 H 0-3 /HPF Urine Squamous Epithelial Cells None seen <5 /hpf Urine Bacteria None seen None Seen /hpf Urine Glucose 4+ H Normal mg/dL Test 08/02/25 14:35 08/02/25 13:50 08/02/25 09:30 Range/Units Blood Gas Specimen Type Arterial Blood Gas Sample Site Left brachial Blood Gas Patient Temperature 37.0 Arterial Blood Date Drawn [id number] Arterial Blood pH 7.502 H 7.350-7.450 Arterial Blood Partial Pressure CO2 40.6 35.0-48.0 mmHg Arterial Blood Partial Pressure O2 60.4 L 83.0-108.0 mmHg Arterial Blood HCO3 31.1 H 21.0-28.0 mmol/L Arterial Blood Oxygen Saturation 90.4 L 94.0-98.0 % Arterial Blood Base Excess 7.3 H -2.0-3.0 mmol/L Arterial Blood Oxyhemoglobin 89.2 L 94.0-98.0 % Arterial Blood Carboxyhemoglobin 0.7 0.5-1.5 % Arterial Blood Methemoglobin 0.6 0.0-1.5 % Arterial Blood Deoxyhemoglobin 9.5 H 0.0-5.0 % Manav Test N/a Blood Gas Total Hemoglobin 8.70 L 13.5-17.5 g/dL Blood Gas Liter Flow 4.00 Blood Gas Modality Nasal cannula FiO2 % 36.0 D-Dimer, Quantitative 18.96 H 0.0-0.49 mg/L FEU Troponin I High Sensitivity 33 </=54 ng/L Lactic Acid Level 1.8 0.4-2.0 mmol/L B-Type Natriuretic Peptide 1275.86 0-100 pg/mL Assessment ESKD on HD Acute hypoxic respiratory failure Severe anemia Recent h/o C diff colitis Acute on chronic diastolic HF DM HTN Hyperphosphatemia Secondary hyperparathyroidism of renal origin Plan/Recommendation HD today . Transfusion Continue with BiPAP /High flow labs in AM . Plan discussed with: Patient, Spouse YRIS CRONIN MD Aug 03, 2025 08:24
[2025-08-03 08:25] LABS: Stomatocytes Few
[2025-08-03 08:50] LABS: Hematocrit 19.0 % (41.0-53.0)
[2025-08-03 08:50] LABS: COVID19 ANTIGEN SOFIA FIA NEGATIVE (NEGATIVE)
[2025-08-03 08:53] LABS: Hemoglobin 6.4 g/dL (13.5-17.5)
[2025-08-03] MEDS: ACETAMINOPHEN 325 MG TAB PO ONE (09:44)
--- NOTE | 2025-08-03 10:02 | DVHPN2 ---
Progress Note Date Seen: Aug 03, 2025 Medical Necessity Reason Pt with a Central, PICC or Fol: No Subjective Patient reports: No new complaints Review of Systems: HEENT:Normal, CVS:Normal, RESPIRATORY:Normal, GI:Normal, :Normal, MSK:Normal, NEURO:Normal Objective vital signs Vital Sign Date Time Temp Pulse Resp B/P (MAP) Pulse Ox O2 Delivery O2 Flow Rate FiO2 08/03/25 09:46 157/89 08/03/25 09:44 98.1 08/03/25 08:56 94 8 90 08/03/25 06:00 Mask 8.0 08/03/25 06:00 60 Total Intake and Output 08/02/25 08/02/25 08/03/25 15:00 23:00 07:00 Intake Total 250 ml 600 ml Balance 250 ml 600 ml medications Current Medications Medications Dose Ordered Sig/Brunilda Route Start Time Stop Time Status Last Admin Dose Admin Vancomycin HCl 500 mg QID PO 08/02/25 14:00 08/03/25 05:52 500 MG Meropenem 50 ml @ 17 mls/hr DAILY IV 08/03/25 10:00 Azithromycin 250 ml @ 125 mls/hr DAILY IV 08/02/25 14:00 08/03/25 09:45 125 MLS/HR Insulin Human NPH 15 units IBID [place] 08/02/25 18:00 Diagnostic Test (Pha) 1 strip ACHS 08/02/25 17:00 08/03/25 05:53 1 STRIP Insulin Human Regular ACHS SC 08/02/25 17:00 08/03/25 05:59 2 UNITS Dextrose 50 ml UD PRN IV 08/02/25 14:00 Albuterol 2.[address] [facility] 08/02/25 18:00 08/03/25 06:00 2.5 MG Ipratropium [place] 0.[address] [facility] 08/02/25 18:00 08/03/25 06:00 0.5 MG Heparin Sodium (Porcine) 5,000 units Q12HR SC 08/02/25 22:00 08/03/25 09:54 5,000 UNITS Amlodipine Besylate 5 mg DAILY PO 08/02/25 14:00 08/03/25 09:46 5 MG Acetaminophen 650 mg Q6HP PRN PO 08/02/25 23:45 08/03/25 09:43 650 MG Examination: GENERAL:Normal, HEENT:Normal, NECK:Normal, LUNGS:Normal, LUNGS:Abnormal (on rales, on oxymizer), CVS:Normal, ABDOMEN:Normal, MSK:Normal, MSK:Abnormal (edema++), SKIN:Normal, NEURO:Normal, :Normal laboratory and microbiology Laboratory Tests 08/03/25 08:17 08/03/25 05:13 Test 08/03/25 05:13 Range/Units Serum Glucose 140 H 74-106 mg/dL Microbiology Date/Time Source Procedure Growth Status 08/02/25 19:45 Voided Urine Urine Culture - Preliminary No growth Resulted 08/02/25 09:39 Blood Blood Culture - Preliminary NO GROWTH AFTER 24 HOURS OF INCUBATION. Resulted Problem List/Assessment/Plan Problem List/Assessment/Plan #1 acute resp failure: cont oxygen, on bipap prn #2 likely sepsis with pneumonia- gram positive/neg: iv antibiotics #3 encephalopathy likely metabolic/hypoxic #4 esrd: on dialysis #5 anemia: transfuse #6 s/p recent appy/c diff colitis #7 acute on chronic diastolic heart failure: dialysis #8 dm: insulin Plan discussed with: Patient, Spouse My Orders My Orders Orders - RAO KUHN MD Procedure Category Date Status Time Renal DIET 08/03/25 Transmitted Standard(2gna,3gk,Lopho) Lunch Carvedilol Tablet PHA 08/03/25 Transmitted (Coreg Tablet) 10:00 Obtain Consent For: ORDERS 08/03/25 Transmitted 09:51 Packedcell-Noactive BBK 08/03/25 Transmitted Bleeding 09:51 Type And Screen BBK 08/03/25 Transmitted 09:51 Administer Blood GRETTA 08/03/25 Transmitted Products 09:51 Obtain Consent For GRETTA 08/03/25 Transmitted Anesthesia 09:51 Pantoprazole Tablet PHA 08/04/25 Transmitted (Protonix Tablet) 06:00 Calcitriol Capsule PHA 08/03/25 Transmitted (Rocaltrol Capsule) 10:00 Calcium Acetate PHA 08/03/25 Transmitted Capsule (Phoslo 12:00 Comprehensive LAB 08/04/25 Verified Metabolic Panel 06:00 Complete Blood Count LAB 08/04/25 Verified 06:00 Chest Portable XY 08/04/25 Transmitted 06:00 Hemoglobin A1c LAB 08/04/25 Verified 06:00 Critical Care Time (mins): 39 (critical care time excluding procedures is 39 mins) Date of Service: Aug 03, 2025 Billing Provider: RAO KUHN MD Common Visit Codes: [id number] CARE 30-74 MIN RAO KUHN MD Aug 03, 2025 10:02
[2025-08-03 10:09] LABS: Iron 24.0 ug/dL (65-175); Total Iron Binding Capacity 196.0 ug/dL (250-425)
[2025-08-03 10:12] LABS: Ferritin 826.0 ng/mL (22-322)
[2025-08-03] MEDS: CARVEDILOL 3.125 MG TAB PO SCH (10:44)
[2025-08-03] MEDS: CALCITRIOL 0.25 MCG CAP PO SCH (10:44)
[2025-08-03] MEDS: MEROPENEM 500MG IVPB 50 ML IV SCH (10:56)
[2025-08-03] MEDS: CALCIUM ACETATE 667 MG CAP PO SCH (12:29)
[2025-08-03] MEDS: HYDROcodone-ACET 5/325MG TAB PO PRN (14:18)
[2025-08-03] MEDS: SODIUM CHL 0.9% 1000 ML BAG XX ONE (23:20)
[2025-08-04] VITALS (17 sets, daily range): BP systolic 139–166; BP diastolic 73–98; PULSE 78–100; RESP 16–19; TEMP 98.1–98.7; O2SAT 81–100
--- NOTE | 2025-08-04 05:29 | DVH ---
CHEST RADIOGRAPH INDICATION: pneumonia TECHNIQUE: Single frontal view of the chest was obtained COMPARISON: XY CHEST PORTABLE on DOS: 08/02/25 FINDINGS: Lines and Tubes: Right PermCath unchanged. Lungs: Extensive multifocal bilateral pulmonary airspace disease with scattered consolidative features. Pleura: No effusion. No pneumothorax. Cardiomediastinal contours: Unremarkable Bones: Unremarkable IMPRESSION: 1. Extensive multifocal bilateral pulmonary airspace disease with scattered consolidative features. 2. Right PermCath.
[2025-08-04] MEDS: EPOETIN ALFA-EPBX 10,000 UNIT/1ML VIAL SC ONE (06:08)
[2025-08-04] MEDS: PANTOPRAZOLE 40 MG TAB PO SCH (06:09)
[2025-08-04 07:01] LABS: Hematocrit 24.2 % (41.0-53.0); Hemoglobin 8.1 g/dL (13.5-17.5); Mean Corpuscular Hemoglobin 28.8 pg (28.0-32.0); Mean Corpuscular Volume 86.0 fL (80.0-100.0); Nucleated Red Blood Cells % 0.0 %
[2025-08-04 07:20] LABS: Alanine Aminotransferase 26 U/L (7-40); Albumin 3.6 g/dL (3.2-4.8); Anion Gap 11 (5-15); BUN/Creatinine Ratio 3.9 (10.0-20.0); Potassium 4.1 mmol/L (3.5-5.1); Sodium 140 mmol/L (136-145); Total Protein 6.8 g/dL (5.7-8.2)
[2025-08-04 07:21] LABS: Bilirubin, Total 0.4 mg/dL (0.2-1.0)
[2025-08-04 07:25] LABS: Alkaline Phosphatase 148 U/L (46-116); Blood Urea Nitrogen 30 mg/dL (9-23); Calcium 8.5 mg/dL (8.7-10.4); Carbon Dioxide 31 mmol/L (20-31); Chloride 98 mmol/L (98-107); Glucose 124 mg/dL (74-106)
--- NOTE | 2025-08-04 10:13 | DVHPN2 ---
Progress Note - Dictate Date Seen: Aug 04, 2025 Medical Necessity Reason Pt with a Central, PICC or Fol: No Subjective no acute issues . Respiratory status has improved vital signs Vital Sign Date Time Temp Pulse Resp B/P (MAP) Pulse Ox O2 Delivery O2 Flow Rate FiO2 08/04/25 08:34 98.1 96 17 146/81 (102) 96 98.1 08/04/25 08:00 Oxymizer 14 N/A Total Intake and Output 08/03/25 08/03/25 08/04/25 15:00 23:00 07:00 Intake Total 300 ml 1100 ml 600 ml Balance 300 ml 1100 ml 600 ml medications Current Medications Medications Dose Ordered Sig/Brunilda Route Start Time Stop Time Status Last Admin Dose Admin Vancomycin HCl 500 mg QID PO 08/02/25 14:00 08/04/25 06:09 500 MG Meropenem 50 ml @ 17 mls/hr DAILY IV 08/03/25 10:00 08/03/25 10:56 17 MLS/HR Azithromycin 250 ml @ 125 mls/hr DAILY IV 08/02/25 14:00 08/03/25 09:45 125 MLS/HR Insulin Human NPH 15 units IBID SC 08/02/25 18:00 Diagnostic Test (Pha) 1 strip ACHS 08/02/25 17:00 08/04/25 06:09 1 STRIP Insulin Human Regular ACHS SC 08/02/25 17:00 08/03/25 21:44 3 UNITS Dextrose 50 ml UD PRN IV 08/02/25 14:00 Albuterol 2.5 mg Q6HWA [facility] 08/02/25 18:00 08/04/25 07:25 2.5 MG Ipratropium [place] 0.5 mg Q6HWA [facility] 08/02/25 18:00 08/04/25 07:25 0.5 MG Heparin Sodium (Porcine) 5,000 units Q12HR SC 08/02/25 22:00 08/03/25 21:53 5,000 UNITS Amlodipine Besylate 5 mg DAILY PO 08/02/25 14:00 08/03/25 09:46 5 MG Acetaminophen 650 mg Q6HP PRN PO 08/02/25 23:45 08/03/25 17:40 650 MG Carvedilol 6.25 mg Q12HR PO 08/03/25 10:00 08/03/25 21:56 6.25 MG Pantoprazole Sodium 40 mg DAILY@0600 PO 08/04/25 06:00 08/04/25 06:09 40 MG Calcitriol 0.25 mcg DAILY PO 08/03/25 10:00 08/03/25 10:44 0.25 MCG Calcium Acetate 667 mg TIDWMEALS PO 08/03/25 12:00 08/03/25 17:33 667 MG Acetaminophen/ Hydrocodone Bitart 1 tab Q6HPRN PRN PO 08/03/25 13:15 08/03/25 21:57 1 TAB objective General: Alert and oriented 4, mildly tachypneic. pALLOR PRESENT Lungs: Mild crackles bilaterally. Heart: Regular rate and rhythm. Abdomen: Soft, non-tender, healed surgical scars. Extremities: +2 pitting edema bilaterally. Neuro: No focal deficits. Access: Tunneled dialysis catheter present. laboratory and microbiology Laboratory Tests 08/04/25 05:15 Test 08/04/25 05:15 Range/Units Serum Glucose 124 H 74-106 mg/dL Problem List ESKD on HD Acute hypoxic respiratory failure Severe anemia Recent h/o C diff colitis Acute on chronic diastolic HF DM HTN Hyperphosphatemia Secondary hyperparathyroidism of renal origin Assessment/Plan HD in AM Epo with HD Plan discussed with: Patient, Spouse CC Plasma Assessment Blood Product Administration S: [id number] YRIS CRONIN MD Aug 04, 2025 10:13
[2025-08-04 10:17] LABS: Hepatitis B Surface Antigen Negative (Negative)
--- NOTE | 2025-08-04 10:24 | DVHPN2 ---
Progress Note Date Seen: Aug 04, 2025 Medical Necessity Reason Pt with a Central, PICC or Fol: No Subjective Patient reports: No new complaints Review of Systems: HEENT:Normal, CVS:Normal, RESPIRATORY:Normal, GI:Normal, :Normal, MSK:Normal, NEURO:Normal Objective vital signs Vital Sign Date Time Temp Pulse Resp B/P (MAP) Pulse Ox O2 Delivery O2 Flow Rate FiO2 08/04/25 08:34 98.1 96 17 146/81 (102) 96 98.1 08/04/25 08:00 Oxymizer 14 N/A Total Intake and Output 08/03/25 08/03/25 08/04/25 15:00 23:00 07:00 Intake Total 300 ml 1100 ml 600 ml Balance 300 ml 1100 ml 600 ml medications Current Medications Medications Dose Ordered Sig/Brunilda Route Start Time Stop Time Status Last Admin Dose Admin Vancomycin HCl 500 mg QID PO 08/02/25 14:00 08/04/25 06:09 500 MG Meropenem 50 ml @ 17 mls/hr DAILY IV 08/03/25 10:00 08/03/25 10:56 17 MLS/HR Azithromycin 250 ml @ 125 mls/hr DAILY IV 08/02/25 14:00 08/03/25 09:45 125 MLS/HR Insulin Human NPH 15 units IBID [place] 08/02/25 18:00 Diagnostic Test (Pha) 1 strip ACHS 08/02/25 17:00 08/04/25 06:09 1 STRIP Insulin Human Regular ACHS SC 08/02/25 17:00 08/03/25 21:44 3 UNITS Dextrose 50 ml UD PRN IV 08/02/25 14:00 Albuterol 2.5 mg Q6HWA [facility] 08/02/25 18:00 08/04/25 07:25 2.5 MG Ipratropium [place] 0.5 mg Q6HWA [facility] 08/02/25 18:00 08/04/25 07:25 0.5 MG Heparin Sodium (Porcine) 5,000 units Q12HR [place] 08/02/25 22:00 08/03/25 21:53 5,000 UNITS Amlodipine Besylate 5 mg DAILY PO 08/02/25 14:00 08/03/25 09:46 5 MG Acetaminophen 650 mg Q6HP PRN PO 08/02/25 23:45 08/03/25 17:40 650 MG Carvedilol 6.25 mg Q12HR PO 08/03/25 10:00 08/03/25 21:56 6.25 MG Pantoprazole Sodium 40 mg DAILY@0600 PO 08/04/25 06:00 08/04/25 06:09 40 MG Calcitriol 0.25 mcg DAILY PO 08/03/25 10:00 08/03/25 10:44 0.25 MCG Calcium Acetate 667 mg TIDWMEALS PO 08/03/25 12:00 08/03/25 17:33 667 MG Acetaminophen/ Hydrocodone Bitart 1 tab Q6HPRN PRN PO 08/03/25 13:15 08/03/25 21:57 1 TAB Examination: GENERAL:Normal, HEENT:Normal, NECK:Normal, LUNGS:Normal, LUNGS:Abnormal (on oxymizer), CVS:Normal, ABDOMEN:Normal, MSK:Normal, SKIN:Normal, NEURO:Normal, :Normal laboratory and microbiology Laboratory Tests 08/04/25 05:15 Test 08/04/25 05:15 Range/Units Serum Glucose 124 H 74-106 mg/dL Microbiology Date/Time Source Procedure Growth Status 08/03/25 13:57 Nose MRSA Screen - Final Complete 08/02/25 19:45 Voided Urine Urine Culture - Preliminary No growth Resulted 08/02/25 09:39 Blood Blood Culture - Preliminary NO GROWTH AFTER 48 HOURS OF INCUBATION. Resulted Problem List/Assessment/Plan Problem List/Assessment/Plan #1 acute resp failure: cont oxygen, on bipap prn #2 likely sepsis with pneumonia- gram positive/neg: iv antibiotics #3 encephalopathy likely metabolic/hypoxic #4 esrd: on dialysis #5 anemia: transfuse #6 s/p recent appy/c diff colitis #7 acute on chronic diastolic heart failure: dialysis #8 dm: insulin #9 htn: cont meds unstable for transfer Plan discussed with: Patient, Spouse My Orders My Orders Orders - RAO KUHN MD Procedure Category Date Status Time Hydrocodone-Acet PHA 08/03/25 In Process 5/325mg Tab ([place] 13:15 Date of Service: Aug 04, 2025 Billing Provider: RAO KUHN MD Common Visit Codes: [id number] INP/OBS CARE(HIGH) CC Plasma Assessment Blood Product Administration S: [id number] RAO KUHN MD Aug 04, 2025 10:24
[2025-08-04 10:55] LABS: Hepatitis C Antibody Negative (Negative)
[2025-08-04] MEDS: AZITHROMYCIN 250 MG TAB PO SCH (11:49)
[2025-08-04] MEDS: SALINE 0.65 % NASAL SPRAY 45ML BOTTLE EACHNOSTRI ONE (11:54)
--- NOTE | 2025-08-04 13:54 | ECG ---
[facility] Test Date: 2025-08-02 Test Time: 09:06:03 Pat Name: CHERYL MICHAEL Department: Room: 0208 A Gender: M Dobie Man: [place] : 1985 Requested By: RABIA RIVERA Order Number: [id number] Reading MD: Karthik Holguin Measurements Intervals [place] Rate: 108 P: 70 [place]: 127 QRS: 63 QRSD: 113 T: 44 QT: 363 QTc: 487 Interpretive Statements Sinus tachycardia Borderline intraventricular conduction delay Borderline prolonged QT interval Electronically Signed On 08-05-2025 19:21:08 PST by Karthik Holguin Please click the below link to view image of tracing.
[2025-08-04] MEDS: SALINE 0.65 % NASAL SPRAY 45ML BOTTLE EACHNOSTRI SCH (17:26)
[2025-08-04] MEDS: CARVEDILOL 3.125 MG TAB PO SCH (21:41)
[2025-08-05] VITALS (16 sets, daily range): BP systolic 149–179; BP diastolic 78–99; PULSE 78–99; RESP 16–20; TEMP 98–98.8; O2SAT 94–100
[2025-08-05 06:16] LABS: Anion Gap 9 (5-15); Carbon Dioxide 31 mmol/L (20-31); Potassium 4.7 mmol/L (3.5-5.1); Sodium 138 mmol/L (136-145)
[2025-08-05 06:20] LABS: Hemoglobin 7.4 g/dL (13.5-17.5); Nucleated Red Blood Cells % 0.1 %
[2025-08-05 06:21] LABS: Hematocrit 22.2 % (41.0-53.0); Mean Corpuscular Hemoglobin 28.6 pg (28.0-32.0); Mean Corpuscular Volume 85.3 fL (80.0-100.0)
[2025-08-05 06:22] LABS: BUN/Creatinine Ratio 4.3 (10.0-20.0)
[2025-08-05 06:26] LABS: Blood Urea Nitrogen 42 mg/dL (9-23); Calcium 8.3 mg/dL (8.7-10.4); Chloride 98 mmol/L (98-107); Glucose 193 mg/dL (74-106)
--- NOTE | 2025-08-05 14:19 | DVHDS2 ---
Discharge Summary Date of Admission Aug 02, 2025 at 13:57 Date of Discharge: Aug 05, 2025 Labs/Diagnostic Data: Laboratory Results Test 08/05/25 11:23 08/05/25 05:09 08/04/25 05:15 08/03/25 08:17 POC Glucose 146 mg/dl (70-106) White Blood Count 4.3 10^3/uL (4.4-10.8) Red Blood Count 2.60 10^6/uL (4.5-5.90) Hemoglobin 7.4 g/dL (13.5-17.5) Hematocrit 22.2 % (41.0-53.0) Mean Corpuscular Volume 85.3 fL (80.0-100.0) Mean Corpuscular Hemoglobin 28.6 pg (28.0-32.0) Mean Corpuscular Hemoglobin Concent 33.5 g/dL (32.0-36.0) Red Cell Distribution Width 14.0 % (11.8-14.3) Platelet Count 275 10^3/uL (140-450) Mean Platelet Volume 7.1 fL (6.9-10.8) Neutrophils (%) (Auto) 63.3 % (37.0-80.0) Lymphocytes (%) (Auto) 20.1 % (10.0-50.0) Monocytes (%) (Auto) 12.5 % (0.0-12.0) Eosinophils (%) (Auto) 3.4 % (0.0-7.0) Basophils (%) (Auto) 0.7 % (0.0-2.0) Neutrophils # (Auto) 2.7 10 ^3/uL (1.6-8.6) Lymphocytes # (Auto) 0.9 10 ^3/uL (0.4-5.4) Monocytes # (Auto) 0.5 10 ^3/uL (0-1.3) Eosinophils # (Auto) 0.1 10 ^3/uL (0-0.8) Basophils # (Auto) 0 10 ^3/uL (0-0.2) Nucleated Red Blood Cells 0.1 % Sodium Level 138 mmol/L (136-145) Potassium Level 4.7 mmol/L (3.5-5.1) Chloride Level 98 mmol/L (98-107) Carbon Dioxide Level 31 mmol/L (20-31) Anion Gap 9 (5-15) Blood Urea Nitrogen 42 mg/dL (9-23) Creatinine 9.77 mg/dL (0.700-1.30) Glomerular Filtration Rate Calc 6 mL/min (>90) BUN/Creatinine Ratio 4.3 (10.0-20.0) Serum Glucose 193 mg/dL (74-106) Calcium Level 8.3 mg/dL (8.7-10.4) Hemoglobin A1c 6.6 % A1C (<5.7) Total Bilirubin 0.4 mg/dL (0.2-1.0) Aspartate Amino Transferase (AST) 19 U/L (13-40) Alanine Aminotransferase (ALT) 26 U/L (7-40) Alkaline Phosphatase 148 U/L (46-116) Total Protein 6.8 g/dL (5.7-8.2) Albumin 3.6 g/dL (3.2-4.8) Reticulocyte Count (auto) 1.53 % (0.5-1.5) Test 08/03/25 06:00 08/03/25 05:13 08/02/25 19:45 08/02/25 14:35 Influenza Type A Antigen Negative (Negative) Influenza Type B Antigen Negative (Negative) SARS-CoV-2 Antigen (Rapid) Negative (NEGATIVE) Platelet Estimate Adequate Stomatocytes Few Prothrombin Time 12.1 sec (9.3-11.8) Prothrombin Time INR 1.16 (0.9-1.15) Activated Partial Thromboplast Time 29.1 SEC (24.5-34.5) Phosphorus Level 2.4 mg/dL (2.4-5.1) Magnesium Level 2.5 mg/dL (1.6-2.6) Iron Level 24 ug/dL (65-175) Total Iron Binding Capacity 196 ug/dL (250-425) Percent Iron Saturation 12.2 % (20-55) Ferritin 826.0 ng/mL (22-322) Lactate Dehydrogenase 313 U/L (120-246) Vitamin B12 Level 1065 pg/mL (211-911) Vitamin D 25-Hydroxy 21.0 ng/mL (30.0-100) Folic Acid 20.34 ng/mL (>5.38) Thyroid Stimulating Hormone (TSH) 4.12 uIU/mL (0.55-4.78) Hepatitis A IgM Antibody Negative Hepatitis B Surface Antigen Negative (Negative) Hepatitis B Core IgM Antibody Negative (Negative) Hepatitis C Antibody Negative (Negative) Urine Color Yellow (Yellow) Urine Clarity Clear (Clear) Urine pH 8.0 (5.0-9.0) Urine Specific [place] 1.027 (1.001-1.035) Urine Protein 4+ (Negative) Urine Ketones Negative (Negative) Urine Blood Negative /uL (Negative) Urine Nitrite Negative (Negative) Urine Bilirubin Negative (Negative) Urine Urobilinogen Normal mg/dL (Negative) Urine Leukocyte Esterase Negative /uL (Negative) Urine RBC 2 /hpf (0 - 3) Urine Microscopic WBC 5 /HPF (0-3) Urine Squamous Epithelial Cells None seen /hpf (<5) Urine Bacteria None seen /hpf (None Seen) Urine Glucose 4+ mg/dL (Normal) Blood Gas Specimen Type Arterial Blood Gas Sample Site Left brachial Blood Gas Patient Temperature 37.0 Arterial Blood Date Drawn [id number] Arterial Blood pH 7.502 (7.350-7.450) Arterial Blood Partial Pressure CO2 40.6 mmHg (35.0-48.0) Arterial Blood Partial Pressure O2 60.4 mmHg (83.0-108.0) Arterial Blood HCO3 31.1 mmol/L (21.0-28.0) Arterial Blood Oxygen Saturation 90.4 % (94.0-98.0) Arterial Blood Base Excess 7.3 mmol/L (-2.0-3.0) Arterial Blood Oxyhemoglobin 89.2 % (94.0-98.0) Arterial Blood Carboxyhemoglobin 0.7 % (0.5-1.5) Arterial Blood Methemoglobin 0.6 % (0.0-1.5) Arterial Blood Deoxyhemoglobin 9.5 % (0.0-5.0) Manav Test N/a Blood Gas Total Hemoglobin 8.70 g/dL (13.5-17.5) Blood Gas Liter Flow 4.00 Blood Gas Modality Nasal cannula FiO2 % 36.0 Test 08/02/25 13:50 08/02/25 09:30 08/02/25 09:20 D-Dimer, Quantitative 18.96 mg/L FEU (0.0-0.49) Troponin I High Sensitivity 33 ng/L (</=54) Lactic Acid Level 1.8 mmol/L (0.4-2.0) B-Type Natriuretic Peptide 1275.86 pg/mL (0-100) Stool Occult Blood Negative (Negative) Stool Occult Blood Sample #3 (Negative) Stool for White Cells None seen Other Laboratory Tests 08/05/25 05:09 Brief Hx & Hospital Course: SEE DICTATED NOTE Condition at Discharge: Fair Final Diagnosis/Problems List CHF PNEUMONIA Discharge Disposition: Acute Care Facility Discharge Instruct/Medications Diet: Consistent carbohydrate, Renal Activity: No Restrictions, As Tolerated Follow Up/Referral: FU WITH PCP/NEPHROLOGY Medications: PER MAR Scheduled Amlodipine Besylate (Amlodipine Besylate), 1 TAB PO BID, (Reported) Atorvastatin Calcium (Atorvastatin Calcium), 1 TAB PO DAILY, (Reported) Calcium Acetate (Calcium Acetate), 667 MG PO TID, (Reported) Calcium Carbonate (Tums), 500 MG PO QID, (Reported) Insulin Isophane & Reg (Human) (Humulin 70/30 (70-30) 100 Unit/ml), 15 UNITS SC QAM, (Reported) Losartan Potassium (Losartan Potassium), 1 TAB PO DAILY, (Reported) Sevelamer Carbonate (Sevelamer Carbonate), 1 TAB PO TID, (Reported) Vancomycin HCl (Vancomycin HCl), 1 CAP PO QID, (Reported) Miscellaneous Medications Calcitriol (Calcitriol), CAP PO, (Reported) Carvedilol (Carvedilol), TAB PO, (Reported) Heparin Sodium (Porcine) (Heparin Sodium), (Reported) Insulin NPH (Human) (Isophane) (Humulin N Kwikpen), SC, (Reported) Trazodone HCl (Trazodone Hydrochloride), 1 TAB PO, (Reported) Discontinued Medications Insulin NPH Isophane & Reg (Hu (Humulin 70/30 Kwikpen (70-30) 100 Unit/ml), 25 INJ SC HS, (Reported) Discharge Statement: "Patient was advised to return to the ER or call 911 if any headaches, dizziness, shortness of breath, chest pain, abdominal pain, bleeding, fevers, or worsening of medical condition. Patient was counseled about treatment plan, medications, possible side effects, patientverbalized understanding. All questions were answered to the best of my ability. This discharge took greater then 30 minutes in planning, reviewing documentation, counseling the patient, and discussing with other team members." ASSESSMENT ASSESSMENT Assessment CHF PNEUMONIA Date of Service: Aug 05, 2025 Billing Provider: RAO KUHN MD Common Visit Codes: 81605-[place]/OBS DISCH DAY >30min RAO KUHN MD Aug 05, 2025 14:18
[2025-08-05] MEDS: EPOETIN ALFA-EPBX 4,000 UNIT/ML VIAL SC ONE (17:46)
--- NOTE | 2025-08-05 19:47 | DVHDS ---
DATE OF DISCHARGE: 08/05/2025 HISTORY OF PRESENT ILLNESS: The patient is a 39-year-old gentleman who was admitted with history of altered level of consciousness and shortness of breath and has history of end-stage renal disease on dialysis, diabetes, hypertension, recent hospitalization for peritonitis and C. diff colitis. HOSPITAL COURSE: The patient had a chest x-ray that showed bilateral infiltrates suggestive of possible pneumonia versus pulmonary edema. A CT of the abdomen and pelvis showed multifocal opacities in the lung. The patient was seen in Nephrology consult by Dr. Zacarias. Blood cultures have so far been negative. The patient was anemic with a hemoglobin of 6.4 for which he was transfused 1 unit of blood. Influenza, hepatitis, and COVID-19 were negative. The patient has improved in his respiratory status and will be transferred now to [place] for further management. The patient had a Doppler of lower extremities, negative for DVT. Echocardiogram done showed ejection fraction of 55%. FINAL DIAGNOSES: ? Acute respiratory failure. ? Likely sepsis with pneumonia, gram-positive, gram-negative. ? Encephalopathy, likely metabolic/hypoxic. ? End-stage renal disease, on hemodialysis. ? Anemia, status post transfusion. ? Status post recent C. diff colitis. ? Acute on chronic diastolic heart failure. ? Diabetes mellitus. ? Hypertension. Time spent in discharge planning and review of plan with the patient and family and paperwork was 41 minutes. I reviewed in detail with the patient's all the laboratory information as well as the plan of care. MD SHRUTHI Harvey/DANO TID: [id number] RECEIPT: [id number]
== END 2025-08-05 23:23 | disposition short-term general hospital (02) | DRG 871 ==
LOC: ER 09:01 → EDBD 09:01 → OVERFLOW 13:57 → CENTRAL 20:56
PROVIDERS: ADMIT Internal Medicine; ATTEND Internal Medicine
PROC: 5A09357 Assistance with Respiratory Ventilation, Less than 24 Consecutive Hours, Continuous Positive Airway Pressure (ICD-10-PCS; principal; 2025-08-02)
PROC: 30233N1 Transfusion of Nonautologous Red Blood Cells into Peripheral Vein, Percutaneous Approach (ICD-10-PCS; 2025-08-03)
PROC: 5A09357 Assistance with Respiratory Ventilation, Less than 24 Consecutive Hours, Continuous Positive Airway Pressure (ICD-10-PCS; 2025-08-03)
PROC: 5A1D70Z Performance of Urinary Filtration, Intermittent, Less than 6 Hours Per Day (ICD-10-PCS; 2025-08-03)
PROC: 5A09357 Assistance with Respiratory Ventilation, Less than 24 Consecutive Hours, Continuous Positive Airway Pressure (ICD-10-PCS; 2025-08-04)
DX: A41.9 Sepsis, unspecified organism (principal); G93.41 Metabolic encephalopathy; I50.33 Acute on chronic diastolic (congestive) heart failure; J15.69 Pneumonia due to other Gram-negative bacteria; J96.01 Acute respiratory failure with hypoxia; N18.6 End stage renal disease; J15.9 Unspecified bacterial pneumonia; I13.2 Hypertensive heart and chronic kidney disease with heart failure and with stage 5 chronic kidney disease, or end stage renal disease; D63.1 Anemia in chronic kidney disease; E83.39 Other disorders of phosphorus metabolism; Z99.2 Dependence on renal dialysis; Z79.02 Long term (current) use of antithrombotics/antiplatelets; E10.22 Type 1 diabetes mellitus with diabetic chronic kidney disease; N25.81 Secondary hyperparathyroidism of renal origin; Z20.822 Contact with and (suspected) exposure to COVID-19; Z79.4 Long term (current) use of insulin; Z79.899 Other long term (current) drug therapy; Z90.49 Acquired absence of other specified parts of digestive tract
CPT/HCPCS: 36415; 36600; 71045; 74176; 80048; 80053; 80074; 81001; 82270; 82306; 82607; 82728; 82746; 82805; 82962; 83036; 83540; 83550; 83605; 83615; 83735; 83880; 84100; 84443; 84484; 85014; 85018; 85025; 85045; 85048; 85379; 85610; 85730; 86850; 86900; 86901; 86920; 87040; 87081; 87086; 87426; 87804; 90935; 93005; 93306; 93970; 94640; 94660; 96365; 99291; G0378; J0692; J1642; J1815; J2185